=== PATIENT | male | born 1985 | race Caucasian/White ===

== ENCOUNTER 2019-04-15 12:47 | Emergency (ER) | payer OTHER ==
[~2019-04-15 12:47] MED LIST: ACETAMINOPHEN-O1 TAB PO; CITALOPRAM40 MG PO; DECADRON 4MG TAB4 MG PO; LIORESAL 1010 MG/TAB PO; NEURONTIN300 M1 PO; PERCOCET 325 MG1 TA2 PO; ULTRAM 50MG TAB50 MG PO; ZANAFLEX4 M1 PO
[2019-04-15] MEDS ORDERED: CYCLOBENZAPRINE10 M1 PO (13:00)
[2019-04-15 15:26] VITALS: BP 133/97
== END 2019-04-15 15:30 | disposition home or self-care (01) ==
LOC: ED 12:47
DX: S46.002A Unspecified injury of muscle(s) and tendon(s) of the rotator cuff of left shoulder, initial encounter (principal); M54.5 Low back pain; G89.29 Other chronic pain; F17.210 Nicotine dependence, cigarettes, uncomplicated; Z98.890 Other specified postprocedural states; W01.0XXA Fall on same level from slipping, tripping and stumbling without subsequent striking against object, initial encounter; Y99.0 Civilian activity done for income or pay
CPT/HCPCS: J1885; J2360

== ENCOUNTER 2019-07-15 08:30 | Outpatient (RCR) | payer OTHER ==
[~2019-07-15 08:30] MED LIST changes: +CYCLOBENZAPRINE10 M1 PO
== END 2019-08-31 | disposition still patient (30) ==
LOC: PT
DX: S40.012A Contusion of left shoulder, initial encounter (principal)